=== PATIENT | female | born 1995 | race Caucasian/White ===

== ENCOUNTER 2016-07-10 18:10 | Emergency (ER) | payer BC ==
[2016-07-10 18:28] VITALS: BP 115/61
--- NOTE | 2016-07-10 18:48 | UC ---
Complaint Female HPI - HPI Summary HPI Summary: complaint of tampon in vagina for approx 3 days currently having menses still using tampons at this time denies pain took a shower today and could feel tampon but couldn't remove it denies fever , fatigue , abnormal discharge, abdominal pain - History Of Current Complaint Chief Complaint: UCGU Stated Complaint: PERSONAL Time Seen by Provider: 07/10/16 18:42 Hx Obtained From: Patient Hx Last Menstrual Period: 07/06/16 - Allergies/Home Medications Allergies/Adverse Reactions: Allergies Allergy/AdvReac Type Severity Reaction Status Date / Time No Known Allergies Allergy Verified 07/10/16 18:23 Home Medications: Home Medications Eye Drops. 1 drop RIGHT EYE BID 07/10/16 [History] PMH/Surg Hx/FS Hx/Imm Hx Previously Healthy: Yes - Surgical History Surgical History: None - Family History Known Family History: Negative: Cardiac Disease, Hypertension, Diabetes - Social History Occupation: Student Alcohol Use: Occasionally Substance Use Type: None Smoking Status (MU): Current Some Day Smoker Type: Cigarettes Amount Used/How Often: occasional use Cessation Counseling: Patient Advised to Stop Review of Systems Constitutional: Negative Skin: Negative Eyes: Eye Redness ENT: Negative Respiratory: Negative Cardiovascular: Negative Gastrointestinal: Negative Genitourinary: Other - tampon in vagina Motor: Negative Neurovascular: Negative Musculoskeletal: Negative Neurological: Negative Psychological: Negative All Other Systems Reviewed And Are Negative: Yes Physical Exam Triage Information Reviewed: Yes Appearance: No Pain Distress, Well-Nourished Vital Signs: Initial Vital Signs Temp 98.7 F 07/10/16 18:24 Pulse 92 07/10/16 18:24 Resp 16 07/10/16 18:24 BP 115/61 07/10/16 18:24 Pulse Ox 97 07/10/16 18:24 Vital Signs Reviewed: Yes Eyes: Positive: Conjunctiva Inflamed - rigt eye, Discharge ENT: Positive: Pharynx normal, TMs normal Neck: Positive: No Lymphadenopathy Respiratory: Positive: Lungs clear, Normal breath sounds, No respiratory distress Cardiovascular: Positive: RRR, No Murmur Abdomen Description: Positive: Nontender, Soft Bowel Sounds: Positive: Present Musculoskeletal Exam: Normal Neurological: Positive: Alert Psychological Exam: Normal Skin Exam: Normal - - tampon lodged sideways in vagina - removed with forceps cervix without discharge- some vagnal bleeding no abnormal discharge Complaint Female Dx - Differential Dx/Diagnosis Provider Diagnoses: foreign body removal Discharge - Discharge Plan Condition: Stable Disposition: HOME Patient Education Materials: Menstruation (ED) Referrals: [facility] [place] [facility] [Outside] Additional Instructions: Please review your discharge instructions. If your symptoms do not improve please call your primary care provider or return to urgent care.
== END 2016-07-10 19:19 | disposition home or self-care (01) ==
LOC: UCCORT 18:10
DX: T19.2XXA Foreign body in vulva and vagina, initial encounter (principal); X58.XXXA Exposure to other specified factors, initial encounter; Y92.9 Unspecified place or not applicable; Z72.0 Tobacco use
CPT/HCPCS: 99202; G0463

== ENCOUNTER 2016-09-22 17:09 | Emergency (ER) | payer BC ==
[2016-09-22 17:48] VITALS: BP 116/53
--- NOTE | 2016-09-22 18:02 | ED ---
Skin Complaint - HPI Summary HPI Summary: 20 yr old female with complaint of soft tissue lump/pain right upper buttock cheek. HPI: for over a week she has had a small lump, red, painful and tender. No drainage. She had diarrhea 10 days ago and was wiping a lot, and may have irritated herself wiping. she denies any trauma or falls. She has no other complaints. Pain is 7/10 and worse sitting. She is taking aleve. - History of Current Complaint Chief Complaint: UCSkin Time Seen by Provider: 09/22/16 17:45 Stated Complaint: PAINFUL LUMP ON TAILBONE Hx Last Menstrual Period: 09/11/16 - Allergy/Home Medications Allergies/Adverse Reactions: Allergies Allergy/AdvReac Type Severity Reaction Status Date / Time No Known Allergies Allergy Verified 07/10/16 18:23 Home Medications: Home Medications Naproxen Sodium [Naproxen Sodium 220 mg cap] 220 mg PO PRN 09/22/16 [History] PMH/Surg Hx/FS Hx/Imm Hx Previously Healthy: Yes Infectious Disease History: No Infectious Disease History: Denies: Traveled Outside the [place] in Last 30 Days - Family History Known Family History: Negative: Cardiac Disease, Hypertension, Diabetes - Social History Occupation: Student Alcohol Use: Weekly Substance Use Type: Reports: None Smoking Status (MU): Current Some Day Smoker Type: Cigarettes Amount Used/How Often: occasional use Review of Systems Constitutional: Negative Eyes: Negative ENT: Negative Cardiovascular: Negative Respiratory: Negative Gastrointestinal: Negative Positive: Other - soft tissue pain and swelling right buttock area. All Other Systems Reviewed And Are Negative: Yes Physical Exam Triage Information Reviewed: Yes Vital Signs On Initial Exam: Initial Vitals Temp Pulse Resp BP Pulse Ox 99.1 F 94 16 116/53 100 09/22/16 17:38 09/22/16 17:38 09/22/16 17:38 09/22/16 17:38 09/22/16 17:38 Vital Signs Reviewed: Yes Appearance: Positive: Well-Appearing, No Pain Distress Skin: Positive: Warm Head/Face: Positive: Normal Head/Face Inspection Eyes: Positive: Normal, EOMI Neck: Positive: Supple Respiratory/Lung Sounds: Positive: Clear to Auscultation, Breath Sounds Present Cardiovascular: Positive: Normal, RRR. Negative: Murmur Abdomen Description: Positive: Nontender, Other: - The right superior gluteal area has an area of induration that is 2cm in diameter. It is not fluctuant. It is tender. It is slightly red. There is no midline cyst. This area is not in the midline or over the tailbone. It is clearly in the right upper buttock area in the fold. Exam done with triage nurse in the room and present. Musculoskeletal: Positive: Normal Neurological: Positive: Normal, Sensory/Motor Intact, Alert, Oriented to Person Place, Time, CN Intact II-III Psychiatric: Positive: Normal Diagnostics - Vital Signs Vital Signs Temp Pulse Resp BP Pulse Ox 09/22/16 17:38 99.1 F 94 16 116/53 100 - Laboratory Lab Statement: Any lab studies that have been ordered have been reviewed, and results considered in the medical decision making process. Course/Dx - Course Course Of Treatment: 20 yr old female with soft tissue infection. Will discharge on bactrim DS. FU PMD in [place]. - Diagnoses Provider Diagnoses: Soft tissue infection, Furuncle of buttock Discharge - Discharge Plan Condition: Good Disposition: HOME Prescriptions: Sulfamethox/Trimethoprim DS* [Bactrim DS 800/160 TAB*] 1 tab PO BID #20 tab Patient Education Materials: Furunculosis and Carbunculosis (ED) Referrals: Steve MCKEON,[facility] [Primary Care Provider] -
== END 2016-09-22 18:07 | disposition home or self-care (01) ==
LOC: UCCORT 17:09
DX: L02.32 Furuncle of buttock (principal); Z72.0 Tobacco use
CPT/HCPCS: 99211; G0463